=== PATIENT | female | born 1970 ===

== ENCOUNTER 2023-08-21 18:19 | Emergency (ER) | payer OTHER ==
[2023-08-21] MEDS ORDERED: Cyclobenzaprine 10 MG TAB ONE (18:37)
[2023-08-21] MEDS ORDERED: Ibuprofen 800 MG TAB ONE (18:37)
== END 2023-08-21 18:46 | disposition home or self-care (01) ==
LOC: NAV ERS 18:19
DX: S73.102A Unspecified sprain of left hip, initial encounter (principal); S29.012A Strain of muscle and tendon of back wall of thorax, initial encounter; S39.012A Strain of muscle, fascia and tendon of lower back, initial encounter; E11.9 Type 2 diabetes mellitus without complications; V89.2XXA Person injured in unspecified motor-vehicle accident, traffic, initial encounter; Z79.84 Long term (current) use of oral hypoglycemic drugs
CPT/HCPCS: 99283